=== PATIENT | female | born 1960 | race Caucasian/White ===

== ENCOUNTER 2022-07-18 17:37 | Inpatient (IN) | payer MEDICARE, OTHER ==
[~2022-07-18] VITALS: Ht 180.3 cm; Wt 39.2 kg
[~2022-07-18 17:37] MED LIST: NAPR500 PO
[2022-07-18] MEDS ORDERED: Ventolin/Prove6.7 GM INH (17:50)
[2022-07-18] MEDS ORDERED: BUDESONIDE0.5 MG/25 INH (17:50)
[2022-07-18 17:54] LABS: Hematocrit 41.3 % (33.0-51.0); Hemoglobin 13.7 g/dL (11.5-16.0); Mean Corpuscular HGB 34.1 pg (26.0-34.0); Mean Corpuscular HGB Conc 33.2 g/dL (31.5-36.5); Mean Corpuscular Volume 103 fL (80-100); Platelet Count 273 K/mm3 (150-400); RDW Coefficient Variation 11.7 % (11.7-14.2); RDW Standard Deviation 44.3 fL (35.1-46.3); Red Blood Cell Count 4.02 M/mm3 (3.80-5.20); White Blood Cell Count 14.99 K/mm3 (4.00-11.30)
[2022-07-18 18:10] LABS: Albumin/Globulin Ratio 1.2 (0.8-1.8); Bilirubin, Total 0.3 mg/dL (0.1-1.0); Bun/Creatinine Ratio 18.9 (12.0-20.0); Calcium, Blood 9.6 mg/dL (8.5-10.1); Creatinine, Blood 0.42 mg/dL (0.40-1.00); Globulin, Blood 3.4 g/dL (2.2-4.0); Potassium, Blood 4.2 mmol/L (3.5-5.5); Total Protein, Blood 7.4 g/dL (6.4-8.2)
[2022-07-18 18:44] LABS: BASOPHILS PERCENT MAN 0 % (0-2); EOSINOPHILS PERCENT MAN 0 % (0-6); LYMPHOCYTES ABSOLUTE MAN 5.54 K/mm3 (0.84-5.20); LYMPHOCYTES PERCENT MAN 37 % (21-46); MONOCYTES ABSOLUTE MAN 1.19 K/mm3 (0.16-1.47); MONOCYTES PERCENT MAN 8 % (4-13); NEUTROPHILS ABSOLUTE MAN 8.24 K/mm3 (1.96-9.15); SEG NEUTROPHILS PERCENT MAN 55 % (41-73); TOTAL CELLS COUNTED 100
[2022-07-18] MEDS ORDERED: PRED20 PO (20:45)
[2022-07-18] MEDS ORDERED: DOXY100 PO (20:45)
[2022-07-18] MEDS ORDERED: ALBU2.5V5 INH (20:47)
[2022-07-18] MEDS ORDERED: FLUT1DIS5 INH (21:19)
[2022-07-19 00:06] LABS: Base Excess Venous 3.5 mmol/L; PCO2 Venous 44.4 mmHg (38-42); pH Blood Venous 7.41 (7.34-7.37)
--- NOTE | 2022-07-19 01:08 | NUR ---
REPORT FROM WOOD LAST MAKERFRANCES HUSSEIN. PATIENT READY FOR TRANSFER TO ROOM 360
[2022-07-19 04:49] LABS: BASOPHILS ABSOLUTE AUTO 0.01 K/mm3 (0.00-0.23); BASOPHILS PERCENT AUTO 0 % (0-2); EOSINOPHILS PERCENT AUTO 0 % (0-6); Hematocrit 40.9 % (33.0-51.0); Hemoglobin 13.8 g/dL (11.5-16.0); IMMATURE GRAN ABSOLUTE AUTO 0.02 K/mm3 (0.00-0.10); IMMATURE GRAN PERCENT AUTO 0 % (0-1); LYMPHOCYTES ABSOLUTE AUTO 3.04 K/mm3 (0.84-5.20); LYMPHOCYTES PERCENT AUTO 31 % (21-46); MONOCYTES ABSOLUTE AUTO 0.19 K/mm3 (0.16-1.47); MONOCYTES PERCENT AUTO 2 % (4-13); Mean Corpuscular HGB 34.4 pg (26.0-34.0); Mean Corpuscular HGB Conc 33.7 g/dL (31.5-36.5); Mean Corpuscular Volume 102 fL (80-100); Mean Platelet Volume 9.3 fL (9.1-12.4); NEUTROPHILS PERCENT AUTO 67 % (41-73); Platelet Count 258 K/mm3 (150-400); RDW Coefficient Variation 11.7 % (11.7-14.2); RDW Standard Deviation 44.2 fL (35.1-46.3); Red Blood Cell Count 4.01 M/mm3 (3.80-5.20); White Blood Cell Count 9.96 K/mm3 (4.00-11.30)
[2022-07-19 05:15] LABS: Bun/Creatinine Ratio 28.6 (12.0-20.0); Calcium, Blood 9.2 mg/dL (8.5-10.1); Creatinine, Blood 0.46 mg/dL (0.40-1.00); Potassium, Blood 4.6 mmol/L (3.5-5.5)
--- NOTE | 2022-07-19 05:59 | NUR ---
PATIENT SLEPT WELL AFTER ARRIVING IN ROOM FROM ER. LENORE IS A&OX4, OOB WITH A MINIMAL STANDBY ASSIST TO BATHROOM. SHE HAS BEEN WEARING 3 LITERS NC SINCE HER ARRIVAL WHICH IS HER BASELINE 02 AT HOME. LUNG SOUNDS ARE COARSE WITH EXP WHEEZES THROUGHOUT. THIS LADY IS VERY CACHECTIC AND STATES SHE IS NOT TRYING TO LOSE WEIGHT, INFACT TRYING TO GAIN. THIS RN BROUGHT HER A RATHER LARGE PLATE OF FOOD WHICH SHE ATE VERY QUICKLY SOON IT WAS RECEIVED. SHE DOES HAVE A SPOUSE WHO IS CURRENTLY AT [facility] WITH A BROKEN BACK. NO COMPLAINTS OF PAIN OR DISCOMFORT OVERNIGHT.
--- NOTE | 2022-07-19 18:12 | NUR ---
SHIFT SUMMARY PT A&O X 4. VSS. IS ON 3 L'S HUMIDIFIED O2 VIA N/C. SATS REMAIN >90%. HAS STRONG PRODUCTIVE COUGH PRODUCING SCANT TO MEDIUM AMOUNT OF YELLOW GREENISH SPUTUM IS INDEPENDENT IN THE ROOM FOR RESTROOM USE, DOES BECOME SOB WITH EXERTION. PT C/O INCREASED ANXIETY THIS AFTERNOON WITH DIFFICULTY BREATHING, RR 27-30. RT IN ROOM FOR BREATHING TREATMENT. PLACED CALL TO MD, REQUESTED ORDERS FOR ANTI ANXIETY MED. RECEIVED ORDERS. MED GIVEN TO PT WITH GOOD RELIEF STATED BY PT. CALL LIGHT WITHIN REACH.
[2022-07-20 04:44] LABS: BASOPHILS ABSOLUTE AUTO 0.01 K/mm3 (0.00-0.23); BASOPHILS PERCENT AUTO 0 % (0-2); EOSINOPHILS PERCENT AUTO 0 % (0-6); Hematocrit 41.2 % (33.0-51.0); Hemoglobin 13.6 g/dL (11.5-16.0); IMMATURE GRAN ABSOLUTE AUTO 0.05 K/mm3 (0.00-0.10); IMMATURE GRAN PERCENT AUTO 0 % (0-1); LYMPHOCYTES ABSOLUTE AUTO 3.22 K/mm3 (0.84-5.20); LYMPHOCYTES PERCENT AUTO 24 % (21-46); MONOCYTES ABSOLUTE AUTO 0.32 K/mm3 (0.16-1.47); MONOCYTES PERCENT AUTO 2 % (4-13); Mean Corpuscular HGB 34.6 pg (26.0-34.0); Mean Corpuscular Volume 105 fL (80-100); Mean Platelet Volume 9.6 fL (9.1-12.4); NEUTROPHILS ABSOLUTE AUTO 9.98 K/mm3 (1.96-9.15); NEUTROPHILS PERCENT AUTO 73 % (41-73); Platelet Count 274 K/mm3 (150-400); RDW Coefficient Variation 11.7 % (11.7-14.2); RDW Standard Deviation 45.4 fL (35.1-46.3); Red Blood Cell Count 3.93 M/mm3 (3.80-5.20); White Blood Cell Count 13.58 K/mm3 (4.00-11.30)
[2022-07-20 04:59] LABS: Bun/Creatinine Ratio 39.4 (12.0-20.0); Calcium, Blood 9.2 mg/dL (8.5-10.1); Creatinine, Blood 0.43 mg/dL (0.40-1.00); Potassium, Blood 4.5 mmol/L (3.5-5.5)
--- NOTE | 2022-07-20 05:04 | NUR ---
SHIFT SUMMARY PT IS A&O4, 3.5L NC, SB WITH A WALKER TO THE BR, PT WAS ANXIOUS OVERNIGHT ATARAX GIVEN PER MAR. NO COMPLAINTS OF PAIN OR DISCOMFORT THIS SHIFT CONTINUE POC
--- NOTE | 2022-07-20 18:39 | NUR ---
SHIFT SUMMARY REMAINS ON 3.5 L'S O2 WITH SATS >90%. VSS. PT STATES SHE FEELS MUCH BETTER THOUGH REPORTS STILL FEELING WEAK & SOB WITH EXERTION, USING RESTROOM...ETC. STATES SHE FEELS SOB W/EATING AND TAKES HER TIME AND USUALLY DOESN'T EAT ALL HER FOOD. MEDICATED TWICE WITH TYLENOL FOR C/O R SHOULDER/SIDE OF HER TORSO BEING PAINFUL, STATES HAS GOOD RELIEF W/TYLENOL. MEDICATED FOR C/O ANXIETY WITH ATARAX PER EMAR WITH STATED GOOD RELIEF OF THE ANXIETY. CALL LIGHT WITHIN REACH, USES APPROPRIATELY. IS PLEASANT & COOPERATIVE WITH ALL CARE.
--- NOTE | 2022-07-21 06:38 | NUR ---
PT REQUESTING ANXIETY MEDICATION Q 3 HRS, REMINDED PT OF ORDER OF Q4HRS. CALLS FOR NEEDS.
--- NOTE | 2022-07-21 18:51 | NUR ---
SHIFT SUMMARY NO ACUTE CHANGES THIS SHIFT. VSS. MEDICATED FOR C/O R SHOULDER PAIN WITH TYLENOL PER EMAR WITH GOOD RELIEF STATED BY PT. MEDICATED FOR C/O ANXIETY PER EMAR WITH GOOD RELIEF. PT WILLINGLY PARTICIPATED WITH PT TODAY. PT WAS ABLE TO SHOWER ON HER OWN. IS PLEASANT & COOPERATIVE WITH ALL CARE. IS INDEPENDENT WITH FWW FOR RESTROOM USE. CALL LIGHT WITHIN REACH AND PT USES APPROPRIATELY.
[2022-07-22] MEDS ORDERED: OMEPRAZOLE MAGN20 M1 PO (00:10)
[2022-07-22] MEDS ORDERED: ARFORMOTER15 MCG/2 M INH (00:11)
[2022-07-22] MEDS ORDERED: IPRAT-ALBUT 0.5-3 ML INH (00:12)
--- NOTE | 2022-07-22 06:10 | NUR ---
MEDICATED X1 FOR ANXIETY AT START OF SHIFT. PT SLEPT WELL WITH MINIMAL NEEDS OVER NIGHT.
--- NOTE | 2022-07-22 17:29 | NUR ---
SHIFT SUMMARY PT AxOx4. COOPERATIVE WITH CARE. PT REPORTED ANXIETY THIS SHIFT AND WAS MEDICATED WITH REPORTED RELIEF. PT'S DAUGHTERS IN THE ROOM THIS SHIFT, UPDATED ON PLAN FOR EXPECTED DC TOMORROW. DAUGHTERS EXPRESS SOME CONCERN THAT HAVING THE PATIENT RETURN HOME MAY NOT BE BEST OPTION ANY LONGER. DRIVE MAN NOTIFIED OF CONCERNS. PT HAD HOME O2 EVAL WITH RT THIS AFTERNOON. PT NO LONGER REQUIRING O2. PT STATES SHE IS REALLY HAPPY SHE DOES NOT NEED OXYGEN ANYMORE. PHYSICAL THERAPY WORKED WITH PATIENT WELL TODAY. PT IS NOW INDEPENDENT IN THE ROOM. PT IS CURRENTLY SITTING IN HER BED WITH CALL LIGHT IN REACH. DENIES ANY NEEDS AT THIS TIME.
--- NOTE | 2022-07-23 05:50 | NUR ---
MINIMAL NEEDS OVERNIGHT. PT REMAINED OFF OF O2 AND NO C/O SOB. INDEPENDENT IN ROOM.
[2022-07-23] MEDS ORDERED: Atarax10 MG PO (13:37)
[2022-07-23] MEDS ORDERED: Prednisone10 MG (13:37)
--- NOTE | 2022-07-23 16:30 | NUR ---
PATIENT D/C'D TO [facility]. IA INSTRUCTIONS AND EDUCATION DISCUSSED WITH PATIENT AND COPY PROVIDED. RX MEDICATIONS FAXED TO [facility] [address]. PATIENT DENIES ANY FURTHER QUESTIONS OR CONCERNS. PLANS TO FOLLOW UP WITH PCP IN [place] AND WILL GET A PCP IN [place].
== END 2022-07-23 16:30 | disposition home health service (06) | DRG 189 ==
LOC: ER 17:37 → MEDS 07-19 00:59
PROVIDERS: Family Medicine; Student in an Organized Health Care Education/Training Program; ADMIT Internal Medicine
DX: J96.21 Acute and chronic respiratory failure with hypoxia (principal); E43 Unspecified severe protein-calorie malnutrition; R64 Cachexia; E87.1 Hypo-osmolality and hyponatremia; E87.3 Alkalosis; Z68.1 Body mass index [BMI] 19.9 or less, adult; Z66 Do not resuscitate; J96.22 Acute and chronic respiratory failure with hypercapnia; D72.829 Elevated white blood cell count, unspecified; J43.9 Emphysema, unspecified; Z87.891 Personal history of nicotine dependence; Z79.51 Long term (current) use of inhaled steroids; Z96.641 Presence of right artificial hip joint; Z99.81 Dependence on supplemental oxygen; Z79.899 Other long term (current) drug therapy
CPT/HCPCS: 36415; 71046; 80048; 80053; 82803; 84484; 85025; 93005; 93010; 94640; 94664; 94760; 94761; 96365; 96375; 97110; 97116; 97162; 97530; 99285-25; A9270; J0696; J1650; J2930; J3475; J7512

== ENCOUNTER 2022-07-31 22:27 | Emergency (ER) | payer MEDICARE, OTHER ==
[~2022-07-31] VITALS: Ht 180.3 cm; Wt 48.5 kg
[~2022-07-31 22:27] MED LIST changes: +ALBU2.5V5 INH; +ARFORMOTER15 MCG/2 M INH; +Atarax10 MG PO; +BUDESONIDE0.5 MG/25 INH; +DOXY100 PO; +FLUT1DIS5 INH; +IPRAT-ALBUT 0.5-3 ML INH; +OMEPRAZOLE MAGN20 M1 PO; +PRED20 PO; +Prednisone10 MG; +Ventolin/Prove6.7 GM INH
[2022-07-31 23:38] LABS: BASOPHILS ABSOLUTE AUTO 0.04 K/mm3 (0.00-0.23); BASOPHILS PERCENT AUTO 0 % (0-2); EOSINOPHILS ABSOLUTE AUTO 0.12 K/mm3 (0.00-0.68); EOSINOPHILS PERCENT AUTO 1 % (0-6); Hematocrit 38.4 % (33.0-51.0); Hemoglobin 12.8 g/dL (11.5-16.0); IMMATURE GRAN ABSOLUTE AUTO 0.03 K/mm3 (0.00-0.10); IMMATURE GRAN PERCENT AUTO 0 % (0-1); LYMPHOCYTES ABSOLUTE AUTO 6.16 K/mm3 (0.84-5.20); LYMPHOCYTES PERCENT AUTO 45 % (21-46); MONOCYTES ABSOLUTE AUTO 0.82 K/mm3 (0.16-1.47); MONOCYTES PERCENT AUTO 6 % (4-13); Mean Corpuscular HGB 34.4 pg (26.0-34.0); Mean Corpuscular HGB Conc 33.3 g/dL (31.5-36.5); Mean Corpuscular Volume 103 fL (80-100); Mean Platelet Volume 9.5 fL (9.1-12.4); NEUTROPHILS ABSOLUTE AUTO 6.61 K/mm3 (1.96-9.15); NEUTROPHILS PERCENT AUTO 48 % (41-73); Platelet Count 317 K/mm3 (150-400); RDW Coefficient Variation 11.6 % (11.7-14.2); RDW Standard Deviation 44.1 fL (35.1-46.3); Red Blood Cell Count 3.72 M/mm3 (3.80-5.20); White Blood Cell Count 13.78 K/mm3 (4.00-11.30)
[2022-07-31 23:53] LABS: Albumin, Blood 3.6 g/dL (3.4-5.0); Albumin/Globulin Ratio 1.3 (0.8-1.8); Bilirubin, Total 0.1 mg/dL (0.1-1.0); Bun/Creatinine Ratio 32.6 (12.0-20.0); Creatinine, Blood 0.46 mg/dL (0.40-1.00); Globulin, Blood 2.8 g/dL (2.2-4.0); Potassium, Blood 4.5 mmol/L (3.5-5.5); Total Protein, Blood 6.4 g/dL (6.4-8.2)
[2022-08-01 01:27] LABS: Influenza A, PCR NEGATIVE (NEGATIVE); Influenza B, PCR NEGATIVE (NEGATIVE); Resp Syncytial Virus, PCR NEGATIVE (NEGATIVE); SARS-Cov-2 (COVID-19) PCR, MMC NEGATIVE (NEGATIVE)
[2022-08-01] MEDS ORDERED: PRED20 PO (02:26)
[2022-08-01 02:56] VITALS: BP 136/96
== END 2022-08-01 03:10 | disposition home or self-care (01) ==
LOC: ER 22:27
PROVIDERS: Student in an Organized Health Care Education/Training Program
DX: J44.1 Chronic obstructive pulmonary disease with (acute) exacerbation (principal); K85.90 Acute pancreatitis without necrosis or infection, unspecified; Z79.899 Other long term (current) drug therapy; Z79.52 Long term (current) use of systemic steroids; Z87.891 Personal history of nicotine dependence
CPT/HCPCS: 0241U; 71046; 80053; 83690; 83880; 84484; 85025; 93005; 93010; 94640; 94664; 99285-25; J7512

== ENCOUNTER 2022-08-12 10:26 | Emergency (ER) | payer MEDICARE, OTHER ==
[~2022-08-12] VITALS: Ht 180.3 cm; Wt 54.4 kg
[2022-08-12] MEDS ORDERED: CEPH500 PO (10:34)
[2022-08-12] MEDS ORDERED: OMEP20ER PO (10:43)
[2022-08-12] MEDS ORDERED: FLUTICASONE-SA1 EAC9 IH (10:43)
[2022-08-12 12:55] VITALS: BP 120/73
== END 2022-08-12 13:14 | disposition home or self-care (01) ==
LOC: ER 10:26
DX: T23.071D Burn of unspecified degree of right wrist, subsequent encounter (principal); L03.113 Cellulitis of right upper limb; T31.0 Burns involving less than 10% of body surface; X11.8XXD Contact with other hot tap-water, subsequent encounter; Z79.899 Other long term (current) drug therapy; J44.9 Chronic obstructive pulmonary disease, unspecified; Z87.891 Personal history of nicotine dependence
CPT/HCPCS: A9270